=== PATIENT | male | born 1945 | race Caucasian/White ===

== ENCOUNTER → 2020-08-07 | Outpatient (REF) | payer MEDICARE ==
[2020-08-07 14:21] LABS: APPEARANCE, URINE CLOUDY (CLEAR); BACTERIA, URINE AUTO NEGATIVE (NEGATIVE); BILIRUBIN, URINE AUTO NEGATIVE (NEGATIVE); BLOOD, URINE BLOOD 3+ (NEGATIVE); CALCIUM OXALATE CRYSTALS MODERATE; COLOR, URINE YELLOW (YELLOW); GLUCOSE, URINE (UA) AUTO NEGATIVE (NEGATIVE); KETONE, URINE AUTO TRACE mg/dL (NEGATIVE); LEUKOCYTE ESTERASE, URINE AUTO NEGATIVE (NEGATIVE); MUCUS, URINE SMALL (NEGATIVE); NITRITE, URINE AUTO NEGATIVE (NEGATIVE); PROTEIN, URINE AUTO 2+ mg/dL (NEGATIVE); RBC, URINE AUTO TNTC /HPF (0-3); SPECIFIC GRAVITY URINE AUTO 1.029 (1.002-1.035); SQUAMOUS EPITHELIAL CELL UR AU 1 /HPF (0-6); UROBILINOGEN, URINE AUTO 0.2 mg/dL (0.0-2.0); WBC, URINE AUTO 9 /HPF (0-3)
== END ==
LOC: M SMT 13:55
PROVIDERS: ATTEND Nurse Practitioner Family
DX: R31.0 Gross hematuria (principal)
CPT/HCPCS: 81001; 87086; G0463

== ENCOUNTER 2020-10-16 07:35 | Day surgery (SDC) | payer MEDICARE ==
[~2020-10-16] VITALS: Ht 175.3 cm; Wt 118.6 kg
[~2020-10-16 07:35] MED LIST: ATOR1TAB21 PO; BIMA01SOL OU; BISO5TAB2 PO; FISH1000 PO; GABA-282 PO; LIDOCAINE 1% MDV 20ML VIAL SQ PRN; LR 1,000 ML IV ONE; OCUVCAP2 PO; SIMB1SUS OU; XARE20TA PO; ceFAZolin SOD 2 GM in IV 1 EA IV ONE
[2020-10-16] MEDS ORDERED: propofoL 200 MG/20 ML VIAL As Ordered ONE (09:05)
[2020-10-16] MEDS ORDERED: ONDANSETRON 4MG/2ML VIAL As Ordered ONE (09:05)
[2020-10-16] MEDS ORDERED: dexameTHASONE 4 MG/ML 1ML VIAL (J1100 PER 1MG) As Ordered ONE (09:05)
[2020-10-16] MEDS ORDERED: ROCURONIUM BROMIDE 50 MG/5 ML VIAL As Ordered ONE ×2 (09:05→10:43)
[2020-10-16] MEDS ORDERED: LIDOCAINE 2% 100MG/5ML SDV (FOR ANES.) As Ordered ONE (09:05)
[2020-10-16] MEDS ORDERED: MIDAZOLAM INJ 2MG/2ML VIAL (J2250 PER 1MG) As Ordered ONE (09:08)
[2020-10-16] MEDS ORDERED: fentaNYL 250 MCG/5 ML INJECTION (J3010) As Ordered ONE (09:08)
[2020-10-16] MEDS ORDERED: mitoMYcin 40MG VIAL *UROLOGY* (J9280 PER 5MG) INTRAVESIC ONE (09:30)
[2020-10-16] MEDS ORDERED: LACRILUBE (AKWA TEARS) OPHTH OINT 3.5 GM As Ordered ONE (10:09)
[2020-10-16] MEDS ORDERED: ePHEDrine SULFATE 25 MG/5 ML(5MG/ML) SYRINGE As Ordered ONE (10:30)
[2020-10-16] MEDS ORDERED: SUGAMMADEX SODIUM 500 MG/5 ML VIAL (BRIDION) As Ordered ONE (10:46)
[2020-10-16] MEDS ORDERED: ACETAMINOPHEN 1000MG 100ML IV BTL (OFIRMEV) (J0131 PER 10MG) As Ordered ONE (10:47)
[2020-10-16] MEDS ORDERED: HYDROMORPHONE HCL 0.5 MG/ 0.5 ML SYRINGE (J1170 PER 1) IV PRN (11:50)
[2020-10-16] MEDS ORDERED: ONDANSETRON 4MG/2ML VIAL IV PRN (11:50)
[2020-10-16] MEDS ORDERED: LR 1,000 ML IV SCH (11:50)
[2020-10-16] MEDS ORDERED: oxyCODONE 5MG TAB PO PRN (11:50)
[2020-10-16] MEDS ORDERED: fentaNYL 100 MCG/2 ML INJECTION (J3010) IV PRN (11:50)
--- NOTE | 2020-10-16 12:11 | RO ---
OPERATIVE NOTE DATE OF OPERATION: 10/16/2020 PREOPERATIVE DIAGNOSES: Bladder tumors. POSTOPERATIVE DIAGNOSIS: Bladder tumors. PROCEDURE: Cystoscopy, transurethral resection of bladder tumors (greater than 5 cm), intravesical mitomycin-C instillation, urethral meatal dilation, examination under anesthesia. SURGEON: Norbert Michel MD DIGITAL BUSINESS ANALYST: None. ANESTHESIA: General. OPERATIVE INDICATIONS: This is a 74-year-old male who was found to have a large bladder tumor on the lateral wall as well as several smaller tumors surrounding it. He is brought to the operating room today for treatment. DESCRIPTION OF PROCEDURE: The patient was brought to the operating room and general anesthesia induced. Prophylactic antibiotics were infused. He was placed in a dorsal lithotomy position and then a bimanual digital rectal examination under anesthesia was performed. It was notable for a mildly enlarged prostate with no nodules or induration. There were no palpable bladder masses. The bladder was freely mobile. The patient was then prepped and draped in the usual sterile fashion. 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 I therefore dilated the urethral meatus to 30 Ethiopian using curved metal sounds. Once that was done, I was able to advance a resectoscope in. The bladder was then thoroughly examined. Of note, there was a very large bladder tumor on the right posterolateral wall which was greater than 5 cm. There were several smaller surrounding tumors growing up the right lateral wall. I then resected the superficial area of the tumor and this was sent off as bladder tumors. I then resected the base of the bladder tumor and this was sent off as resection of bladder tumor base to pathology. Any additional smaller tumors were fulgurated using the coagulation current. Once satisfied that all visible tumor had been either resected or fulgurated, I cauterized the base resection until there was excellent hemostasis. All specimen was removed from the bladder using a Urovac evacuator. Once that was done, the resectoscope was removed and an 18 Ethiopian 3-way catheter was inserted into the bladder. The balloon was filled with 30 mL of sterile water. I then hooked up irrigation to the irrigation port and that was clamped off. At this point, I instilled 40 mg of mitomycin-C in 40 mL of sterile water into the bladder. Once it was done, a catheter plug was placed to keep the mitomycin-C in the bladder. This marked the conclusion of the procedure. The patient was taken out of the dorsal lithotomy position, awakened from anesthesia and transferred to the recovery room in stable condition. ESTIMATED BLOOD LOSS: `15 mL COMPLICATIONS: None. SPECIMENS: Bladder tumors, resection of bladder tumor base. PLAN: The mitomycin-C will be kept inside the bladder for an hour while he is in the recovery room. He will then be discharged home and follow up in urology clinic in a few day for catheter removal and for pathology results. CRUZ
[2020-10-16 15:35] VITALS: BP 133/71
== END 2020-10-16 15:35 | disposition home or self-care (01) ==
LOC: M SDC 07:35
PROVIDERS: ATTEND Urology
DX: C67.2 Malignant neoplasm of lateral wall of bladder (principal); N40.0 Benign prostatic hyperplasia without lower urinary tract symptoms; R31.9 Hematuria, unspecified; I10 Essential (primary) hypertension; I48.21 Permanent atrial fibrillation; G47.33 Obstructive sleep apnea (adult) (pediatric); E78.00 Pure hypercholesterolemia, unspecified; M19.90 Unspecified osteoarthritis, unspecified site; M54.9 Dorsalgia, unspecified; J44.9 Chronic obstructive pulmonary disease, unspecified; N28.1 Cyst of kidney, acquired; Z87.891 Personal history of nicotine dependence; J30.9 Allergic rhinitis, unspecified; Z79.899 Other long term (current) drug therapy; Z79.01 Long term (current) use of anticoagulants
CPT/HCPCS: 51720; 52224; 52240; 88305; J0131; J0690; J1100; J2250; J2405; J3010; J9280

== ENCOUNTER → 2021-01-11 | Outpatient (REF) | payer MEDICARE ==
[~2021-01-11] MED LIST changes: -LIDOCAINE 1% MDV 20ML VIAL SQ PRN; -LR 1,000 ML IV ONE; -ceFAZolin SOD 2 GM in IV 1 EA IV ONE
[2021-01-11 13:44] LABS: APPEARANCE, URINE MANUAL CLOUDY (CLEAR); COLOR, URINE MANUAL RED (YELLOW); GLUCOSE, URINE (UA) MANUAL NEGATIVE (NEGATIVE); KETONE, URINE MANUAL NEGATIVE (NEGATIVE)
[2021-01-11 13:45] LABS: BILIRUBIN, URINE MANUAL NEGATIVE (NEGATIVE); BLOOD URINE MANUAL POSITIVE (NEGATIVE); LEUKOCYTE ESTERASE, URINE MAN POSITIVE (NEGATIVE); NITRITE, URINE MANUAL NEGATIVE (NEGATIVE); RBC, URINE TNTC /hpf (0-3); UROBILINOGEN, URINE MANUAL NORMAL (NORMAL)
[2021-01-11 13:46] LABS: BACTERIA, URINE SMALL AMOUNT; HYALINE CAST, URINE NONE SEEN /lpf (0-1); SQUAMOUS EPITHELIAL CELL URINE SMALL AMOUNT /hpf (SMALL AMT); WBC, URINE 15-20 /hpf (0-3)
== END ==
LOC: M SMT 12:48
PROVIDERS: ATTEND Nurse Practitioner Family
DX: R31.0 Gross hematuria (principal)

== ENCOUNTER → 2021-01-29 | Outpatient (REF) | payer MEDICARE | LOC: M SMT 19:21 | PROVIDERS: ATTEND Urology | DX: C67.9 Malignant neoplasm of bladder, unspecified (principal) ==

== ENCOUNTER → 2021-05-07 | Outpatient (REF) | payer MEDICARE ==
[~2021-05-07] MED LIST changes: +BISO1TAB18 PO; -BISO5TAB2 PO
== END ==
LOC: M SMT 13:20
PROVIDERS: ATTEND Urology
DX: R31.0 Gross hematuria (principal); C67.9 Malignant neoplasm of bladder, unspecified

== ENCOUNTER → 2021-11-05 | Outpatient (REF) | payer MEDICARE | LOC: M SMT 13:10 | PROVIDERS: ATTEND Urology | DX: C67.9 Malignant neoplasm of bladder, unspecified (principal) ==

== ENCOUNTER → 2022-02-11 | Outpatient (REF) | payer MEDICARE | LOC: M SMT 09:56 | PROVIDERS: ATTEND Urology | DX: C67.9 Malignant neoplasm of bladder, unspecified (principal) ==

== ENCOUNTER → 2022-05-20 | Outpatient (REF) | payer MEDICARE | LOC: M SMT 12:45 | PROVIDERS: ATTEND Urology | DX: C67.9 Malignant neoplasm of bladder, unspecified (principal) ==

== ENCOUNTER → 2022-07-29 | Outpatient (REF) | payer MEDICARE | LOC: M SMT 16:54 | PROVIDERS: ATTEND Urology | DX: C67.9 Malignant neoplasm of bladder, unspecified (principal) ==

== ENCOUNTER → 2022-12-13 | Outpatient (REF) | payer MEDICARE | LOC: M SMT 17:36 | PROVIDERS: ATTEND Urology | DX: C67.9 Malignant neoplasm of bladder, unspecified (principal) ==

== ENCOUNTER → 2023-06-16 | Outpatient (REF) | payer MEDICARE | LOC: M SMT 15:27 | PROVIDERS: ATTEND Urology | DX: C67.9 Malignant neoplasm of bladder, unspecified (principal) ==

== ENCOUNTER → 2023-12-15 | Outpatient (REF) | payer MEDICARE | LOC: M SMT 17:02 | PROVIDERS: ATTEND Urology | DX: C67.9 Malignant neoplasm of bladder, unspecified (principal) ==

== ENCOUNTER → 2024-08-23 | Outpatient (REF) | payer MEDICARE ==
[~2024-08-23] MED LIST changes: +GABA-1172 PO; -GABA-282 PO
== END ==
LOC: M SMT 13:06
PROVIDERS: ATTEND Urology
DX: C67.9 Malignant neoplasm of bladder, unspecified (principal)